=== PATIENT | male | born 1945 | race Caucasian/White ===

== ENCOUNTER 2017-02-09 15:51 | Emergency (ER) | payer MEDICARE, OTHER | END 2017-02-09 18:17 | disposition home or self-care (01) | LOC: ER1 15:51 | DX: S01.01XA Laceration without foreign body of scalp, initial encounter (principal); W18.39XA Other fall on same level, initial encounter; Y92.410 Unspecified street and highway as the place of occurrence of the external cause | CPT/HCPCS: 12002; 99283 ==